=== PATIENT | male | born 1955 | race Caucasian/White ===

== ENCOUNTER 2016-08-27 17:44 | Inpatient (IN) | payer OTHER ==
[~2016-08-27] VITALS: Ht 195.6 cm; Wt 142.3 kg
[2016-08-27] MEDS ORDERED: ALBUTEROL/IPRATROPIUM 2.5MG/0.5MG, 3 ML NPPB ONE (19:00)
[2016-08-27] MEDS ORDERED: ALBUTEROL/IPRATROPIUM 2.5MG/0.5MG, 3 ML ONE (19:13)
[2016-08-27 19:27] LABS: BLOOD UREA NITROGEN 23 mg/dL (7-18)
[2016-08-27] MEDS ORDERED: CEFTRIAXONE PMX 1GM/50ML 50 ML ONE (19:57)
[2016-08-27] MEDS ORDERED: CEFTRIAXONE 1,000 MG in SODIUM CHLORIDE 0.9% 50 ML IV ONE (20:00)
[2016-08-27] MEDS ORDERED: PANT40TA5 PO (20:14)
[2016-08-27] MEDS ORDERED: IBUP200C8 PO (20:14)
[2016-08-27] MEDS ORDERED: LOVA20TA2 PO (20:14)
[2016-08-27] MEDS ORDERED: PARO10TA3 PO (20:14)
[2016-08-27] MEDS ORDERED: AMLO5TAB2 PO (20:14)
[2016-08-27 21:12] VITALS: BP 155/92
[2016-08-27 21:37] VITALS: BP 155/92
[2016-08-28] MEDS ORDERED: VANCOMYCIN 2,200 MG in SODIUM CHLORIDE 0.9% 500 ML IV ONE (03:00)
[2016-08-28] MEDS: PIPERACILLIN/TAZO/PMX 3.375GM 50 ML IV SCH ×4 (03:25→21:01)
[2016-08-28] MEDS: SODIUM CHLORIDE 0.9% 1,000 ML IV SCH ×4 (03:25→22:30)
[2016-08-28] MEDS ORDERED: KETOROLAC 30 MG/1 ML ONE (03:42)
[2016-08-28] MEDS: KETOROLAC 30 MG/1 ML IVPush PRN ×3 (03:44→15:10)
[2016-08-28] MEDS ORDERED: PHARMACOKINETIC MONITORING MC PRN (04:30)
[2016-08-28] MEDS: ENOXAPARIN 40 MG/0.4 ML SQ SCH (05:19)
[2016-08-28] MEDS ORDERED: ALBUTEROL/IPRATROPIUM 2.5MG/0.5MG, 3 ML NPPB PRN (05:30)
[2016-08-28] MEDS ORDERED: VANCOMYCIN PER PHARMACY MC PRN (08:00)
[2016-08-28 08:10] VITALS: BP 114/70
[2016-08-28] MEDS: PAROXETINE 10 MG TABLET PO SCH (08:24)
[2016-08-28] MEDS: PANTOPRAZOLE 20MG TABLET PO SCH (08:24)
[2016-08-28 11:11] LABS: ASPARTATE AMINO TRANSFERASE 43 U/L (15-37); BLOOD UREA NITROGEN 22 mg/dL (7-18)
[2016-08-28 14:16] VITALS: BP 135/81
[2016-08-28] MEDS ORDERED: AMLODIPINE 5 MG TABLET PO ONE (14:30)
[2016-08-28] MEDS: VANCOMYCIN 2,200 MG in SODIUM CHLORIDE 0.9% 500 ML IV SCH (18:08)
[2016-08-28 20:00] VITALS: BP 151/77
[2016-08-28] MEDS: ATORVASTATIN 20 MG TABLET PO SCH (20:57)
[2016-08-29 01:17] VITALS: BP 125/73
[2016-08-29] MEDS: PIPERACILLIN/TAZO/PMX 3.375GM 50 ML IV SCH ×4 (03:46→21:31)
[2016-08-29] MEDS: KETOROLAC 30 MG/1 ML IVPush PRN ×2 (03:51→19:28)
[2016-08-29] MEDS: SODIUM CHLORIDE 0.9% 1,000 ML IV SCH ×3 (03:55→16:44)
[2016-08-29] MEDS: VANCOMYCIN 2,200 MG in SODIUM CHLORIDE 0.9% 500 ML IV SCH ×2 (04:54→16:42)
[2016-08-29] MEDS: ENOXAPARIN 40 MG/0.4 ML SQ SCH (04:54)
[2016-08-29 07:00] LABS: BLOOD UREA NITROGEN 15 mg/dL (7-18)
[2016-08-29 07:52] VITALS: BP 132/87
[2016-08-29] MEDS: PANTOPRAZOLE 20MG TABLET PO SCH (07:55)
[2016-08-29] MEDS: PAROXETINE 10 MG TABLET PO SCH (07:55)
[2016-08-29] MEDS: AMLODIPINE 5 MG TABLET PO SCH (07:55)
[2016-08-29 13:25] VITALS: BP 157/93
[2016-08-29] MEDS ORDERED: LOPERAMIDE 1 MG/5 ML, 10ML UDC PO ONE (15:00)
[2016-08-29 20:13] VITALS: BP 116/72
[2016-08-29] MEDS: ATORVASTATIN 20 MG TABLET PO SCH (21:31)
[2016-08-29] MEDS: LACTOBACILLUS CHEW TABLET PO SCH (21:32)
[2016-08-30] MEDS: SODIUM CHLORIDE 0.9% 1,000 ML IV SCH ×4 (02:28→21:10)
[2016-08-30] MEDS: KETOROLAC 30 MG/1 ML IVPush PRN ×3 (02:28→21:58)
[2016-08-30 03:18] VITALS: BP 147/92
[2016-08-30] MEDS: PIPERACILLIN/TAZO/PMX 3.375GM 50 ML IV SCH ×4 (03:25→21:58)
[2016-08-30] MEDS: ENOXAPARIN 40 MG/0.4 ML SQ SCH (05:32)
[2016-08-30] MEDS: VANCOMYCIN 2,200 MG in SODIUM CHLORIDE 0.9% 500 ML IV SCH ×2 (05:32→16:52)
[2016-08-30] MEDS: LOPERAMIDE 1 MG/5 ML, 10ML UDC PO PRN ×3 (05:32→12:14)
[2016-08-30 06:21] LABS: BLOOD UREA NITROGEN 16 mg/dL (7-18)
[2016-08-30 07:15] VITALS: BP 122/68
[2016-08-30] MEDS: PAROXETINE 10 MG TABLET PO SCH (08:17)
[2016-08-30] MEDS: AMLODIPINE 5 MG TABLET PO SCH (08:17)
[2016-08-30] MEDS: LACTOBACILLUS CHEW TABLET PO SCH ×3 (08:17→21:58)
[2016-08-30] MEDS: PANTOPRAZOLE 20MG TABLET PO SCH (08:17)
[2016-08-30] MEDS ORDERED: POTASSIUM CHLORIDE 40 MEQ in SODIUM CHLORIDE 0.9% 500 ML IV ONE (10:00)
[2016-08-30 12:55] VITALS: BP 138/79
[2016-08-30 20:00] VITALS: BP 138/82
[2016-08-30] MEDS: ATORVASTATIN 20 MG TABLET PO SCH (21:58)
[2016-08-31] MEDS: PIPERACILLIN/TAZO/PMX 3.375GM 50 ML IV SCH ×2 (03:22→09:35)
[2016-08-31] MEDS: SODIUM CHLORIDE 0.9% 1,000 ML IV SCH ×2 (03:23→09:39)
[2016-08-31 04:26] VITALS: BP 142/89
[2016-08-31] MEDS: VANCOMYCIN 2,200 MG in SODIUM CHLORIDE 0.9% 500 ML IV SCH (04:54)
[2016-08-31] MEDS: ENOXAPARIN 40 MG/0.4 ML SQ SCH (04:54)
[2016-08-31] MEDS: AMLODIPINE 5 MG TABLET PO SCH (09:35)
[2016-08-31] MEDS: PAROXETINE 10 MG TABLET PO SCH (09:35)
[2016-08-31] MEDS: LACTOBACILLUS CHEW TABLET PO SCH (09:35)
[2016-08-31] MEDS: PANTOPRAZOLE 20MG TABLET PO SCH (09:35)
[2016-08-31 10:23] VITALS: BP 124/71
[2016-08-31] MEDS ORDERED: DOXY100T PO (14:45)
[2016-08-31] MEDS ORDERED: ACID1TAB7 PO (14:45)
[2016-08-31] MEDS ORDERED: CEFD300C37 PO (14:45)
[2016-08-31 15:11] VITALS: BP 142/84
== END 2016-08-31 16:16 | disposition home or self-care (01) | DRG 190 ==
LOC: ED 19:55 → EDIP 19:57 → ED 20:26 → 4NOR 20:46 → DCLOUNGE 08-31 15:26
PROVIDERS: ADMIT Internal Medicine; ATTEND Internal Medicine
DX: J44.0 Chronic obstructive pulmonary disease with (acute) lower respiratory infection (principal); J18.9 Pneumonia, unspecified organism; E87.1 Hypo-osmolality and hyponatremia; J45.901 Unspecified asthma with (acute) exacerbation; J44.1 Chronic obstructive pulmonary disease with (acute) exacerbation; E78.5 Hyperlipidemia, unspecified; I10 Essential (primary) hypertension; K21.9 Gastro-esophageal reflux disease without esophagitis; F32.9 Major depressive disorder, single episode, unspecified; E86.1 Hypovolemia; J20.9 Acute bronchitis, unspecified; R19.7 Diarrhea, unspecified
CPT/HCPCS: 36415; 71020; 80048; 80053; 80202; 82040; 83605; 84145; 85025; 87040; 87324; 93005; 94640; 96360; J0696; J1650; J1885; J2543; J3370; J3480; J7620; J7030; J7040; J7512

== ENCOUNTER → 2017-06-10 | Outpatient (CLI) | payer OTHER ==
[~2017-06-10] MED LIST: ACID1TAB7 PO; AMLO5TAB2 PO; CEFD300C37 PO; DOXY100T PO; IBUP200C8 PO; LOVA20TA2 PO; PANT40TA5 PO; PARO10TA3 PO
== END | disposition home or self-care (01) ==
LOC: CVU 15:13
PROVIDERS: ATTEND Internal Medicine Cardiovascular Disease
DX: I35.8 Other nonrheumatic aortic valve disorders (principal); I10 Essential (primary) hypertension; I48.0 Paroxysmal atrial fibrillation; I51.7 Cardiomegaly
CPT/HCPCS: 93306

== ENCOUNTER 2017-08-25 11:09 | Inpatient (IN) | payer OTHER ==
[~2017-08-25] VITALS: Ht 195.6 cm; Wt 140.0 kg
[2017-08-25] MEDS ORDERED: SODIUM CHLORIDE FLUSH 10ML SYR IVF ONE (11:30)
[2017-08-25 11:39] LABS: MEAN CORPUSCULAR HEMOGLOBIN 29.9 pg (27.5-34.5); MEAN CORPUSCULAR HGB CONC 33.7 g/dL (33.2-36.2); MEAN CORPUSCULAR VOLUME 88.7 fL (81-97); MEAN PLATELET VOLUME 8.3 fL (7.4-10.4); PLATELET COUNT 138 x10^3/uL (130-400); RED BLOOD COUNT 4.91 x10^6/uL (4.38-5.82); RED CELL DISTRIBUTION WIDTH 14.1 % (9.4-14.8)
[2017-08-25] MEDS ORDERED: [UNRECOGNIZED DRUG - OTHER] (11:45)
[2017-08-25] MEDS ORDERED: SULF1TAB24 PO (11:45)
[2017-08-25] MEDS ORDERED: FLUT9.9S NAS (11:45)
[2017-08-25] MEDS ORDERED: ACETAMINOPHEN 500 MG TABLET ONE (11:48)
[2017-08-25 11:53] LABS: ALANINE AMINOTRANSFERASE 33 U/L (12-78); ALBUMIN 3.1 g/dL (3.4-5.0); ANION GAP 12 mmol/L (5-15); CHLORIDE 106 mmol/L (98-107); CREATININE 1.34 mg/dL (0.7-1.3)
[2017-08-25 11:54] LABS: MD YES; TROPONIN I < 0.015 ng/mL (0.000-0.045)
[2017-08-25 11:56] LABS: ALKALINE PHOSPHATASE 64 U/L (45-117); BAND#(MANUAL) 0.85 x10^3/uL; BANDS%(MANUAL) 11 % (0-7); BILIRUBIN,TOTAL 1.5 mg/dL (0.2-1.0); LYMPH#(MANUAL) 0.15 x10^3/uL (1-3.4); LYMPHS% (MANUAL) 2 % (22-44); MONOS#(MANUAL) 0.31 x10^3/uL (0.3-2.7); MONOS% (MANUAL) 4 % (2-9); SEG#(MANUAL) 6.39 x10^3/uL (1.8-6.8); SEGS% (MANUAL) 83 % (42-75); TOTAL PROTEIN 6.7 g/dL (6.4-8.2)
[2017-08-25 11:57] LABS: <PLATELET ESTIMATE> ADEQUATE; <PLT MORPHOLOGY> NORMAL PLT MORPH; <RBC MORPHOLOGY> NORMAL
[2017-08-25] MEDS ORDERED: ACETAMINOPHEN 500 MG TABLET PO ONE (12:00)
[2017-08-25] MEDS ORDERED: SODIUM CHLORIDE 0.9% 1,000ML IVBOLUS ONE (12:30)
[2017-08-25 13:06] LABS: MICROSCOPIC INDICATED
[2017-08-25 13:07] LABS: CULTURE INDICATED? YES
[2017-08-25] MEDS: CEFTRIAXONE PMX 1GM/50ML 50 ML IV ONE ×2 (14:31→15:02)
[2017-08-25] MEDS ORDERED: ONDANSETRON 2MG/ML, 2ML IVPush PRN ×2 (15:00→16:00)
[2017-08-25] MEDS ORDERED: ENALAPRILAT 1.25 MG/ML, 2ML IVPush PRN (16:00)
[2017-08-25] MEDS ORDERED: ONDANSETRON ODT 4 MG PO PRN (16:00)
[2017-08-25] MEDS ORDERED: morphine SULFATE 10 MG/ML, 1ML IVPush PRN (16:00)
[2017-08-25] MEDS ORDERED: BISACODYL 10 MG SUPP PR PRN (16:00)
[2017-08-25] MEDS ORDERED: SODIUM CHLORIDE 0.9%, 500ML IVBOLUS ONE (16:30)
[2017-08-25] MEDS: CEFTRIAXONE PMX 2GM/50ML 50 ML IV SCH ×2 (16:54→18:46)
[2017-08-25] MEDS: HEPARIN 5,000 UNITS/ML, 1ML SQ SCH (16:55)
[2017-08-25] MEDS: NS + 20MEQ KCL 1,000 ML IV SCH (18:57)
[2017-08-25] MEDS: ACETAMINOPHEN 325 MG TABLET PO PRN (18:57)
[2017-08-25 19:53] VITALS: BP 107/67
[2017-08-25 20:12] VITALS: BP 96/66
[2017-08-25] MEDS: MEROPENEM 1 GM in SODIUM CHLORIDE 0.9% 100 ML IV SCH (20:19)
[2017-08-25] MEDS: LACTOBACILLUS CHEW TABLET PO SCH (20:39)
[2017-08-25] MEDS: LOVASTATIN 20 MG TABLET PO SCH (20:39)
[2017-08-25] MEDS: INSULIN LISPRO 100 UNITS/ML, PEN SQ-INSULIN SCH (20:39)
[2017-08-25] MEDS: LINEZOLID PMX 600MG/300ML 300 ML IV SCH (21:11)
[2017-08-26] MEDS: HEPARIN 5,000 UNITS/ML, 1ML SQ SCH ×4 (00:03→23:51)
[2017-08-26] MEDS: NS + 20MEQ KCL 1,000 ML IV SCH ×3 (04:31→19:12)
[2017-08-26] MEDS: MEROPENEM 1 GM in SODIUM CHLORIDE 0.9% 100 ML IV SCH ×3 (04:31→20:33)
[2017-08-26 04:48] LABS: MEAN CORPUSCULAR HEMOGLOBIN 29.9 pg (27.5-34.5); MEAN CORPUSCULAR HGB CONC 33.3 g/dL (33.2-36.2); MEAN CORPUSCULAR VOLUME 89.7 fL (81-97); MEAN PLATELET VOLUME 8.6 fL (7.4-10.4); PLATELET COUNT 129 x10^3/uL (130-400); RED BLOOD COUNT 4.65 x10^6/uL (4.38-5.82); RED CELL DISTRIBUTION WIDTH 14.3 % (9.4-14.8)
[2017-08-26 04:56] LABS: ALBUMIN 2.6 g/dL (3.4-5.0); ANION GAP 8 mmol/L (5-15); CALCIUM 7.8 mg/dL (8.5-10.1); CHLORIDE 110 mmol/L (98-107)
[2017-08-26 05:02] LABS: HEMOGLOBIN A1C 6.2 % (4.2-6.3)
[2017-08-26 05:07] LABS: ALANINE AMINOTRANSFERASE 26 U/L (12-78); ALKALINE PHOSPHATASE 48 U/L (45-117); BILIRUBIN,TOTAL 1.1 mg/dL (0.2-1.0); CREATININE 1.09 mg/dL (0.7-1.3); FREE T4 (FREE THYROXINE) 1.06 ng/dL (0.76-1.46); TOTAL PROTEIN 6.2 g/dL (6.4-8.2)
[2017-08-26 05:09] VITALS: BP 132/72
[2017-08-26 05:31] LABS: MD YES
[2017-08-26 05:33] LABS: <PLATELET ESTIMATE> ADEQUATE; <PLT MORPHOLOGY> NORMAL PLT MORPH; <RBC MORPHOLOGY> NORMAL; BAND#(MANUAL) 0.12 x10^3/uL; BANDS%(MANUAL) 1 % (0-7); BASOS#(MANUAL) 0.24 x10^3/uL (0-0.1); BASOS% (MANUAL) 2 % (0-1); LYMPH#(MANUAL) 1.59 x10^3/uL (1-3.4); LYMPHS% (MANUAL) 13 % (22-44); MONOS#(MANUAL) 0.73 x10^3/uL (0.3-2.7); MONOS% (MANUAL) 6 % (2-9); SEG#(MANUAL) 9.52 x10^3/uL (1.8-6.8); SEGS% (MANUAL) 78 % (42-75)
[2017-08-26] MEDS ORDERED: MAGNESIUM SULFATE PMX 2GM/50ML 50 ML IV ONE (06:00)
[2017-08-26] MEDS: INSULIN LISPRO 100 UNITS/ML, PEN SQ-INSULIN SCH ×4 (07:00→20:49)
[2017-08-26] MEDS ORDERED: AMLODIPINE 5 MG TABLET PO SCH (09:00)
[2017-08-26] MEDS: PANTOPROZOLE 40MG TABLET PO SCH (09:20)
[2017-08-26] MEDS: LACTOBACILLUS CHEW TABLET PO SCH ×3 (09:20→20:19)
[2017-08-26] MEDS: LINEZOLID PMX 600MG/300ML 300 ML IV SCH ×2 (09:21→21:59)
[2017-08-26] MEDS: PAROXETINE 10 MG TABLET PO SCH (09:21)
[2017-08-26 11:30] VITALS: BP 113/73
[2017-08-26 13:58] VITALS: BP 119/71
[2017-08-26] MEDS: ACETAMINOPHEN 325 MG TABLET PO PRN (16:26)
[2017-08-26 20:00] VITALS: BP 113/71
[2017-08-26] MEDS: LOVASTATIN 20 MG TABLET PO SCH (20:19)
[2017-08-27 02:00] VITALS: BP 131/79
[2017-08-27 04:39] LABS: BASOPHILS # (AUTO) 0.03 x10^3/uL (0-0.1); BASOPHILS % (AUTO) 0 % (0-1); EOSINOPHILS # (AUTO) 0.59 x10^3/uL (0-0.4); EOSINOPHILS % (AUTO) 8 % (1-7); LYMPHOCYTES # (AUTO) 0.83 x10^3/uL (1-3.4); LYMPHOCYTES % (AUTO) 11 % (22-44); MD NO; MEAN CORPUSCULAR HEMOGLOBIN 29.5 pg (27.5-34.5); MEAN CORPUSCULAR HGB CONC 33.3 g/dL (33.2-36.2); MEAN CORPUSCULAR VOLUME 88.6 fL (81-97); MEAN PLATELET VOLUME 9.1 fL (7.4-10.4); MONOCYTES # (AUTO) 0.87 x10^3/uL (0.2-0.8); MONOCYTES % (AUTO) 11 % (2-9); NEUTROPHILS # (AUTO) 5.53 x10^3/uL (1.8-6.8); NEUTROPHILS % (AUTO) 70 % (42-75); PLATELET COUNT 122 x10^3/uL (130-400); RED BLOOD COUNT 4.41 x10^6/uL (4.38-5.82); RED CELL DISTRIBUTION WIDTH 14.6 % (9.4-14.8)
[2017-08-27 04:52] LABS: ALBUMIN 2.4 g/dL (3.4-5.0); CALCIUM 7.4 mg/dL (8.5-10.1); CHLORIDE 110 mmol/L (98-107)
[2017-08-27 04:58] LABS: ALANINE AMINOTRANSFERASE 25 U/L (12-78); ALKALINE PHOSPHATASE 42 U/L (45-117); ANION GAP 6 mmol/L (5-15); BILIRUBIN,TOTAL 0.9 mg/dL (0.2-1.0); TOTAL PROTEIN 5.8 g/dL (6.4-8.2)
[2017-08-27] MEDS: NS + 20MEQ KCL 1,000 ML IV SCH ×2 (05:09→12:36)
[2017-08-27] MEDS: MEROPENEM 1 GM in SODIUM CHLORIDE 0.9% 100 ML IV SCH (05:09)
[2017-08-27] MEDS: INSULIN LISPRO 100 UNITS/ML, PEN SQ-INSULIN SCH ×4 (07:00→20:15)
[2017-08-27 07:51] VITALS: BP 122/72
[2017-08-27] MEDS: CEFTRIAXONE PMX 2GM/50ML 50 ML IV SCH (09:39)
[2017-08-27] MEDS: PANTOPROZOLE 40MG TABLET PO SCH (09:40)
[2017-08-27] MEDS: LACTOBACILLUS CHEW TABLET PO SCH ×3 (09:40→21:00)
[2017-08-27] MEDS: HEPARIN 5,000 UNITS/ML, 1ML SQ SCH ×3 (09:40→21:00)
[2017-08-27] MEDS: PAROXETINE 10 MG TABLET PO SCH (09:40)
[2017-08-27 12:23] VITALS: BP 135/82
[2017-08-27] MEDS: ACETAMINOPHEN 325 MG TABLET PO PRN (17:07)
[2017-08-27 20:00] VITALS: BP 128/81
[2017-08-27] MEDS: LOVASTATIN 20 MG TABLET PO SCH (21:00)
[2017-08-28 02:00] VITALS: BP 131/80
[2017-08-28] MEDS: HEPARIN 5,000 UNITS/ML, 1ML SQ SCH ×3 (05:19→20:45)
[2017-08-28] MEDS: INSULIN LISPRO 100 UNITS/ML, PEN SQ-INSULIN SCH ×4 (07:00→20:40)
[2017-08-28 07:25] VITALS: BP 136/84
[2017-08-28] MEDS: LACTOBACILLUS CHEW TABLET PO SCH ×3 (08:53→20:45)
[2017-08-28] MEDS: PANTOPROZOLE 40MG TABLET PO SCH (08:53)
[2017-08-28] MEDS: PAROXETINE 10 MG TABLET PO SCH (08:53)
[2017-08-28] MEDS: CEFTRIAXONE PMX 2GM/50ML 50 ML IV SCH (08:53)
[2017-08-28 13:13] VITALS: BP 141/84
[2017-08-28] MEDS: ACETAMINOPHEN 325 MG TABLET PO PRN (16:59)
[2017-08-28 19:50] VITALS: BP 145/84
[2017-08-28] MEDS: LOVASTATIN 20 MG TABLET PO SCH (20:45)
[2017-08-29 02:25] VITALS: BP 149/90
[2017-08-29] MEDS: HEPARIN 5,000 UNITS/ML, 1ML SQ SCH (05:33)
[2017-08-29] MEDS: INSULIN LISPRO 100 UNITS/ML, PEN SQ-INSULIN SCH (07:00)
[2017-08-29 07:07] VITALS: BP 143/84
[2017-08-29] MEDS: LACTOBACILLUS CHEW TABLET PO SCH (09:15)
[2017-08-29] MEDS: PANTOPROZOLE 40MG TABLET PO SCH (09:15)
[2017-08-29] MEDS: CEFTRIAXONE PMX 2GM/50ML 50 ML IV SCH (09:16)
[2017-08-29] MEDS: PAROXETINE 10 MG TABLET PO SCH (09:16)
[2017-08-29] MEDS ORDERED: CEFD300C37 PO (09:31)
== END 2017-08-29 11:21 | disposition home or self-care (01) | DRG 871 ==
LOC: ED 11:46 → EDIP 12:12 → 4NOR 13:13 → CCU 18:25 → 4WST 08-26 11:06 → DCLOUNGE 08-29 11:13
PROVIDERS: ADMIT Internal Medicine; ATTEND Internal Medicine
DX: A41.51 Sepsis due to Escherichia coli [E. coli] (principal); J96.90 Respiratory failure, unspecified, unspecified whether with hypoxia or hypercapnia; R65.21 Severe sepsis with septic shock; E87.2 Acidosis; N17.9 Acute kidney failure, unspecified; N39.0 Urinary tract infection, site not specified; E11.65 Type 2 diabetes mellitus with hyperglycemia; E66.9 Obesity, unspecified; E78.5 Hyperlipidemia, unspecified; E87.6 Hypokalemia; F32.9 Major depressive disorder, single episode, unspecified; I10 Essential (primary) hypertension; I48.91 Unspecified atrial fibrillation; J45.909 Unspecified asthma, uncomplicated; K21.9 Gastro-esophageal reflux disease without esophagitis; Z83.3 Family history of diabetes mellitus; Z87.01 Personal history of pneumonia (recurrent); Z87.440 Personal history of urinary (tract) infections; Z68.36 Body mass index [BMI] 36.0-36.9, adult
CPT/HCPCS: 36415; 36600; 71045; 76770; 80053; 81001; 82803; 82962; 83036; 83605; 83690; 83735; 83880; 84100; 84439; 84443; 84484; 85025; 87040; 87077; 87081; 87086; 87186; 93005; 99285; J0696; J1644; J2020; J2185; J2405; J3480; J1815; J3475; J7030; J7040

== ENCOUNTER 2017-09-14 07:40 | Inpatient (IN) | payer OTHER ==
[~2017-09-14] VITALS: Ht 193 cm; Wt 142.2 kg
[~2017-09-14 07:40] MED LIST changes: +FLUT9.9S NAS; +SULF1TAB24 PO; +[UNRECOGNIZED DRUG - OTHER]
[2017-09-14] MEDS ORDERED: SODIUM CHLORIDE 0.9% 1,000 ML IV ONE (08:06)
[2017-09-14] MEDS ORDERED: MORPHINE SULFATE 4 MG/ML, 1ML IVPush PRN (08:30)
[2017-09-14] MEDS ORDERED: SODIUM CHLORIDE 0.9% 1,000ML IVBOLUS ONE (08:30)
[2017-09-14] MEDS ORDERED: ONDANSETRON 2MG/ML, 2ML IVPush ONE (08:30)
[2017-09-14] MEDS ORDERED: FAMOTIDINE 20 MG/2 ML IVP ONE (08:30)
[2017-09-14] MEDS ORDERED: ONDANSETRON 2MG/ML, 2ML ONE (08:41)
[2017-09-14] MEDS ORDERED: MORPHINE SULFATE 4 MG/ML, 1ML ONE (08:41)
[2017-09-14] MEDS ORDERED: FAMOTIDINE 20 MG/2 ML ONE (08:41)
[2017-09-14 08:46] LABS: MEAN CORPUSCULAR HEMOGLOBIN 29.6 pg (27.5-34.5); MEAN CORPUSCULAR HGB CONC 33.5 g/dL (33.2-36.2); MEAN CORPUSCULAR VOLUME 88.4 fL (81-97); MEAN PLATELET VOLUME 8.2 fL (7.4-10.4); PLATELET COUNT 246 x10^3/uL (130-400); RED BLOOD COUNT 5.58 x10^6/uL (4.38-5.82); RED CELL DISTRIBUTION WIDTH 14.7 % (9.4-14.8)
[2017-09-14 08:57] LABS: ALANINE AMINOTRANSFERASE 30 U/L (12-78); ALBUMIN 3.7 g/dL (3.4-5.0); ANION GAP 9 mmol/L (5-15); CALCIUM 8.8 mg/dL (8.5-10.1); CHLORIDE 104 mmol/L (98-107); CREATININE 1.25 mg/dL (0.7-1.3)
[2017-09-14 09:00] LABS: ALKALINE PHOSPHATASE 65 U/L (45-117); BILIRUBIN,TOTAL 1.6 mg/dL (0.2-1.0)
[2017-09-14] MEDS ORDERED: ALBU18HF INH (09:01)
[2017-09-14 09:05] LABS: BASOPHILS % (AUTO) 0 % (0-1); EOSINOPHILS # (AUTO) 0.02 x10^3/uL (0-0.4); EOSINOPHILS % (AUTO) 0 % (1-7); LYMPHOCYTES # (AUTO) 0.88 x10^3/uL (1-3.4); LYMPHOCYTES % (AUTO) 7 % (22-44); MD SCAN; MONOCYTES # (AUTO) 1.45 x10^3/uL (0.2-0.8); MONOCYTES % (AUTO) 11 % (2-9); NEUTROPHILS # (AUTO) 10.72 x10^3/uL (1.8-6.8); NEUTROPHILS % (AUTO) 82 % (42-75)
[2017-09-14] MEDS ORDERED: FLEC100T PO (09:22)
[2017-09-14] MEDS ORDERED: METRONIDAZOLE PMX 500MG/100ML 100 ML IV ONE (09:30)
[2017-09-14 09:34] LABS: MICROSCOPIC AUTO
[2017-09-14 09:37] LABS: CULTURE INDICATED? YES
[2017-09-14] MEDS ORDERED: OMNIPAQUE 350 MG/ML, 100ML BOTTLE ONE (09:40)
[2017-09-14] MEDS ORDERED: METRONIDAZOLE PMX 500MG/100ML 100 ML ONE (10:00)
[2017-09-14] MEDS ORDERED: ONDANSETRON ODT 8 MG ONE (10:11)
[2017-09-14] MEDS ORDERED: TEMPLATE NON-FORMULARY MED. (Albuterol Sulfate (Ventolin Hfa) 2 PUFF(S)) INH PRN (11:00)
[2017-09-14] MEDS ORDERED: ONDANSETRON 2MG/ML, 2ML IVPush PRN (11:00)
[2017-09-14] MEDS ORDERED: hydrALAzine 20 MG/ML, 1ML IVPush PRN (11:00)
[2017-09-14 11:24] VITALS: BP 113/79
[2017-09-14] MEDS: NS + 20MEQ KCL 1,000 ML IV SCH ×2 (12:31→21:16)
[2017-09-14] MEDS: ENOXAPARIN 40 MG/0.4 ML SQ SCH (12:31)
[2017-09-14] MEDS: VANCOMYCIN 50 MG/ML ORAL SUSP PO SCH ×3 (12:32→23:49)
[2017-09-14 13:20] LABS: CLOSTRIDIUM DIFFICILE ANTIGEN POSITIVE; CLOSTRIDIUM DIFFICILE TOXIN POSITIVE (Negative)
[2017-09-14 13:24] VITALS: BP 130/81
[2017-09-14] MEDS: ACETAMINOPHEN 325 MG TABLET PO PRN ×2 (17:05→21:15)
[2017-09-14 19:14] VITALS: BP 103/67
[2017-09-14] MEDS: FLECAINIDE 100MG TABLET PO SCH (20:06)
[2017-09-14] MEDS: LOVASTATIN 20 MG TABLET PO SCH (20:06)
[2017-09-15 00:46] VITALS: BP 109/68
[2017-09-15 05:17] LABS: BASOPHILS # (AUTO) 0.01 x10^3/uL (0-0.1); BASOPHILS % (AUTO) 0 % (0-1); EOSINOPHILS # (AUTO) 0.12 x10^3/uL (0-0.4); EOSINOPHILS % (AUTO) 2 % (1-7); LYMPHOCYTES # (AUTO) 1.06 x10^3/uL (1-3.4); LYMPHOCYTES % (AUTO) 14 % (22-44); MD NO; MEAN CORPUSCULAR HEMOGLOBIN 29.6 pg (27.5-34.5); MEAN CORPUSCULAR HGB CONC 33.6 g/dL (33.2-36.2); MEAN CORPUSCULAR VOLUME 88.1 fL (81-97); MONOCYTES # (AUTO) 1.16 x10^3/uL (0.2-0.8); MONOCYTES % (AUTO) 15 % (2-9); NEUTROPHILS # (AUTO) 5.42 x10^3/uL (1.8-6.8); NEUTROPHILS % (AUTO) 70 % (42-75); PLATELET COUNT 197 x10^3/uL (130-400); RED BLOOD COUNT 4.67 x10^6/uL (4.38-5.82); RED CELL DISTRIBUTION WIDTH 14.5 % (9.4-14.8)
[2017-09-15 05:19] LABS: ALANINE AMINOTRANSFERASE 20 U/L (12-78); ALBUMIN 2.6 g/dL (3.4-5.0); ANION GAP 8 mmol/L (5-15); CALCIUM 7.5 mg/dL (8.5-10.1); CHLORIDE 110 mmol/L (98-107); CREATININE 0.86 mg/dL (0.7-1.3)
[2017-09-15 05:21] LABS: ALKALINE PHOSPHATASE 48 U/L (45-117); TOTAL PROTEIN 6.2 g/dL (6.4-8.2)
[2017-09-15] MEDS: VANCOMYCIN 50 MG/ML ORAL SUSP PO SCH ×4 (05:45→23:54)
[2017-09-15 06:49] VITALS: BP 97/68
[2017-09-15] MEDS ORDERED: POTASSIUM CHLORIDE 20 MEQ TAB.ER.PRT PO ONE (07:00)
[2017-09-15 08:52] VITALS: BP 109/69
[2017-09-15] MEDS: PAROXETINE 10 MG TABLET PO SCH (08:52)
[2017-09-15] MEDS: FLECAINIDE 100MG TABLET PO SCH ×2 (08:53→19:28)
[2017-09-15] MEDS: AMLODIPINE 5 MG TABLET PO SCH (08:53)
[2017-09-15] MEDS: ENOXAPARIN 40 MG/0.4 ML SQ SCH (12:16)
[2017-09-15 14:31] VITALS: BP 112/65
[2017-09-15] MEDS ORDERED: POTASSIUM CHLORIDE 20 MEQ TAB.ER.PRT PO SCH (17:00)
[2017-09-15 18:58] VITALS: BP 130/83
[2017-09-15] MEDS: ACETAMINOPHEN 325 MG TABLET PO PRN (19:27)
[2017-09-15] MEDS: LOVASTATIN 20 MG TABLET PO SCH (19:28)
[2017-09-16 01:05] VITALS: BP 120/75
[2017-09-16 05:09] LABS: BASOPHILS # (AUTO) 0.02 x10^3/uL (0-0.1); BASOPHILS % (AUTO) 0 % (0-1); EOSINOPHILS # (AUTO) 0.35 x10^3/uL (0-0.4); EOSINOPHILS % (AUTO) 5 % (1-7); LYMPHOCYTES % (AUTO) 19 % (22-44); MD NO; MEAN CORPUSCULAR HEMOGLOBIN 29.5 pg (27.5-34.5); MEAN CORPUSCULAR HGB CONC 33.4 g/dL (33.2-36.2); MEAN CORPUSCULAR VOLUME 88.6 fL (81-97); MEAN PLATELET VOLUME 8.1 fL (7.4-10.4); MONOCYTES % (AUTO) 19 % (2-9); NEUTROPHILS # (AUTO) 3.84 x10^3/uL (1.8-6.8); NEUTROPHILS % (AUTO) 56 % (42-75); PLATELET COUNT 204 x10^3/uL (130-400); RED BLOOD COUNT 4.84 x10^6/uL (4.38-5.82); RED CELL DISTRIBUTION WIDTH 14.3 % (9.4-14.8)
[2017-09-16 05:23] LABS: ANION GAP 8 mmol/L (5-15); CALCIUM 8.1 mg/dL (8.5-10.1); CHLORIDE 109 mmol/L (98-107)
[2017-09-16] MEDS: VANCOMYCIN 50 MG/ML ORAL SUSP PO SCH ×3 (05:40→17:46)
[2017-09-16 07:07] VITALS: BP 124/79
[2017-09-16] MEDS: POTASSIUM CHLORIDE 20 MEQ TAB.ER.PRT PO SCH ×2 (08:25→17:46)
[2017-09-16] MEDS: AMLODIPINE 5 MG TABLET PO SCH (08:25)
[2017-09-16] MEDS: PAROXETINE 10 MG TABLET PO SCH (08:25)
[2017-09-16] MEDS: FLECAINIDE 100MG TABLET PO SCH ×2 (08:25→19:43)
[2017-09-16] MEDS: ACETAMINOPHEN 325 MG TABLET PO PRN (08:25)
[2017-09-16] MEDS: ENOXAPARIN 40 MG/0.4 ML SQ SCH (12:04)
[2017-09-16 12:14] VITALS: BP 134/77
[2017-09-16 19:11] VITALS: BP 130/80
[2017-09-16] MEDS: LOVASTATIN 20 MG TABLET PO SCH (19:43)
[2017-09-17] MEDS: VANCOMYCIN 50 MG/ML ORAL SUSP PO SCH ×4 (00:04→17:39)
[2017-09-17 01:17] VITALS: BP 117/77
[2017-09-17] MEDS: ACETAMINOPHEN 325 MG TABLET PO PRN (06:16)
[2017-09-17 08:00] VITALS: BP_SYST 63
[2017-09-17] MEDS: PAROXETINE 10 MG TABLET PO SCH (09:45)
[2017-09-17] MEDS: AMLODIPINE 5 MG TABLET PO SCH (09:45)
[2017-09-17] MEDS: FLECAINIDE 100MG TABLET PO SCH ×2 (09:45→21:22)
[2017-09-17] MEDS: POTASSIUM CHLORIDE 20 MEQ TAB.ER.PRT PO SCH (09:45)
[2017-09-17] MEDS: ENOXAPARIN 40 MG/0.4 ML SQ SCH (12:00)
[2017-09-17 12:11] VITALS: BP 111/70
[2017-09-17 20:34] VITALS: BP 130/82
[2017-09-17] MEDS: LOVASTATIN 20 MG TABLET PO SCH (21:22)
[2017-09-18] MEDS: VANCOMYCIN 50 MG/ML ORAL SUSP PO SCH ×3 (00:04→12:12)
[2017-09-18 00:09] VITALS: BP 137/85
[2017-09-18 07:36] LABS: ALBUMIN 2.8 g/dL (3.4-5.0); ANION GAP 8 mmol/L (5-15); CALCIUM 8.6 mg/dL (8.5-10.1); CHLORIDE 109 mmol/L (98-107); CREATININE 0.82 mg/dL (0.7-1.3)
[2017-09-18 07:48] VITALS: BP 131/80
[2017-09-18] MEDS: AMLODIPINE 5 MG TABLET PO SCH (09:19)
[2017-09-18] MEDS: PAROXETINE 10 MG TABLET PO SCH (09:19)
[2017-09-18] MEDS: FLECAINIDE 100MG TABLET PO SCH (09:19)
[2017-09-18] MEDS: ENOXAPARIN 40 MG/0.4 ML SQ SCH (12:12)
[2017-09-18] MEDS ORDERED: VANC1VIA3 PO (13:45)
[2017-09-18 14:29] VITALS: BP 129/85
== END 2017-09-18 15:14 | disposition home or self-care (01) | DRG 871 ==
LOC: ED 08:44 → EDIP 09:45 → 3NE 11:08
PROVIDERS: ADMIT Hospitalist; ATTEND Hospitalist
DX: A41.9 Sepsis, unspecified organism (principal); E43 Unspecified severe protein-calorie malnutrition; R17 Unspecified jaundice; A04.72 Enterocolitis due to Clostridium difficile, not specified as recurrent; Z68.38 Body mass index [BMI] 38.0-38.9, adult; E78.5 Hyperlipidemia, unspecified; E86.0 Dehydration; E87.6 Hypokalemia; I11.9 Hypertensive heart disease without heart failure; I48.0 Paroxysmal atrial fibrillation; J45.909 Unspecified asthma, uncomplicated; K21.9 Gastro-esophageal reflux disease without esophagitis; N32.9 Bladder disorder, unspecified; Z83.3 Family history of diabetes mellitus
CPT/HCPCS: 36415; 99285; J3370; S0028; 74177; 80048; 80053; 81001; 82040; 83690; 85025; 87040; 87086; 87324; 89055; 93005; 96365; 96375; J1650; J2405; J3480; Q9967; J7030